=== PATIENT | female | born 1975 | race Caucasian/White ===

== ENCOUNTER 2019-01-11 16:14 | Emergency (ER) | payer MEDICAID ==
[~2019-01-11] VITALS: Ht 165.1 cm; Wt 100.0 kg
[~2019-01-11 16:14] MED LIST: NO HOME MEDS; ULTRAM50 MG OR
[2019-01-11 16:48] LABS: GFR > 60 ML/MIN (>=60 (CALC)); GFR FOR AFR.AMER. > 60 ML/MIN (>=60 (CALC))
[2019-01-11 16:51] LABS: HEMATOCRIT 44.1 % (37.0-47.0); HEMOGLOBIN 15.4 g/dl (12.0-16.0); IMMATURE GRANULOCYTES 0.8 % (0.0-5.0); MEAN CORPUSCULAR HGB 29.7 pG CALC (26.0-32.0); MEAN CORPUSCULAR HGB CONC 34.9 g/L CALC (32.0-36.0); NEUT# 15.68 thou/uL (2.00-7.15); RED BLOOD COUNT 5.19 mill/uL (4.20-5.60); RED CELL DISTRI WIDTH 12.4 % (11.5-15.5)
[2019-01-11 17:04] LABS: PROTHROMBIN TIME 10.2 SECONDS (9.0-12.5)
[2019-01-11 17:25] LABS: ALBUMIN 4.1 g/dL (3.2-5.0); ALKALINE PHOSPHATASE 108 u/l (38-126); ANION GAP 16 (6-22 (CALC)); BILIRUBIN, TOTAL 0.9 mg/dL (0.0-1.4); BUN 15 mg/dL (7-17); BUN/CREATININE RATIO 31 (12-20 (CALC)); CARBON DIOXIDE 24 mmol/l (22-30); CHLORIDE 96 mmol/l (95-108); CREATININE 0.5 mg/dL (0.5-1.0); GFR > 60 ML/MIN (>=60 (CALC)); GFR FOR AFR.AMER. > 60 ML/MIN (>=60 (CALC)); SGOT/AST 29 u/l (14-36); SODIUM 133 mmol/l (137-146); TOTAL PROTEIN 7.7 g/dL (6.3-8.2)
[2019-01-11 17:28] LABS: POTASSIUM 3.2 mmol/l (3.5-5.1)
[2019-01-11 17:35] VITALS: BP 155/88
[2019-01-11 17:37] LABS: MYOGLOBIN 37 ng/mL (0 - 62)
== END 2019-01-11 17:35 | disposition short-term general hospital (02) ==
LOC: ED 16:14
PROVIDERS: Family Medicine
DX: I63.9 Cerebral infarction, unspecified (principal); R41.82 Altered mental status, unspecified; R47.81 Slurred speech; R47.01 Aphasia; R42 Dizziness and giddiness; R20.0 Anesthesia of skin; F17.200 Nicotine dependence, unspecified, uncomplicated; R94.31 Abnormal electrocardiogram [ECG] [EKG]; R29.719 NIHSS score 19
CPT/HCPCS: J0153; J2997

== ENCOUNTER 2020-05-09 12:04 | Observation (INO) | payer MEDICAID ==
[~2020-05-09] VITALS: Ht 165.1 cm; Wt 83.6 kg
--- NOTE | 2020-05-09 12:10 | NUR ---
PT AMB TO ROOM WITH STEADY GAIT FOR TRIAGE;
[2020-05-09 13:03] LABS: HEMATOCRIT 38.2 % (37.0-47.0); IMMATURE GRANULOCYTES 0.8 % (0.0-5.0); MEAN CELL VOLUME 84.5 fL CALC (80.0-100.0); MEAN CORPUSCULAR HGB 28.1 pG CALC (26.0-32.0); MEAN CORPUSCULAR HGB CONC 33.2 g/dL CAL (32.0-36.0); NEUT# 2.12 thou/uL (2.00-7.15); RED BLOOD COUNT 4.52 mill/uL (4.20-5.60); RED CELL DISTRI WIDTH 13.2 % (11.5-15.5)
--- NOTE | 2020-05-09 13:10 | NUR ---
DR DONNELLY AT BEDSIDE FOR ASSESSMENT
[2020-05-09 13:18] LABS: HEMOGLOBIN 12.7 g/dl (12.0-16.0)
[2020-05-09 13:21] LABS: ALBUMIN 4.6 g/dL (3.2-5.0); ALKALINE PHOSPHATASE 77 u/l (38-126); BUN 13 mg/dL (7-17); BUN/CREATININE RATIO 26 (12-20 (CALC)); C-REACTIVE PROTEIN 0.8 mg/dL (0-0.9); CARBON DIOXIDE 22 mmol/l (22-30); CHLORIDE 102 mmol/l (95-108); CREATININE 0.5 mg/dL (0.5-1.0); GFR > 60 ML/MIN (>=60 (CALC)); GFR FOR AFR.AMER. > 60 ML/MIN (>=60 (CALC)); SGOT/AST 38 u/l (14-36); SODIUM 134 mmol/l (137-146); TOTAL PROTEIN 7.9 g/dL (6.3-8.2)
[2020-05-09 13:23] LABS: ANION GAP 14 (6-22 (CALC)); BILIRUBIN, TOTAL 0.3 mg/dL (0.0-1.4); POTASSIUM 4.2 mmol/l (3.5-5.1)
--- NOTE | 2020-05-09 14:10 | NUR ---
PT RESTING ON STRETCHER; STATES PAIN HAS REDUCED TO 4 OUT OF 10; PT AND FAMILY ADVISED OF CONTINUED WAIT TIME; WILL CONTINUE TO MONITOR
[2020-05-09] MEDS ORDERED: ZESTRIL5 M1 PO (14:30)
[2020-05-09] MEDS ORDERED: METFORMIN HCL1000 MG PO (14:31)
[2020-05-09] MEDS ORDERED: EZALLOR SPRINKL20 MG PO (14:32)
[2020-05-09] MEDS ORDERED: ASPIRIN 81 LOW81 MG PO (14:33)
--- NOTE | 2020-05-09 15:10 | NUR ---
DR DONNELLY AT BEDSIDE TO DISCUSS POC
--- NOTE | 2020-05-09 16:10 | NUR ---
PT SITTING UP ON STRETCHER; NO S/S OF DISTRESS NOTED; VSS; PT AND FAMILY ADVISED OF CONTINUED WAIT TIME; CALL LIGHT WITHIN REACH; WILL CONTINUE TO MONITOR
--- NOTE | 2020-05-09 17:10 | NUR ---
MEAL TRAY GIVEN; PT AND FAMILY ADVISED OF CONTINUED WAIT TIME; VSS; WILL CONTINUE TO MONITOR
[2020-05-09 18:30] VITALS: BP 122/73
--- NOTE | 2020-05-09 18:35 | NUR ---
PT ARRIVED TO MED/SURG ROOM 281 IN STABLE CONDITION VIA WHEELCHAIR ACCOMPANIED BY MARIA ESTHER EAGLE;PT AMBULATED TO BEDSIDE WITH A STEADY GAIT;A&O X3,ORIENTED TO ROOM AND CALL LIGHT SYSTEM;VS OBTAINED BY АЛЕКСАНДР ASHLEY;PT DENIES ANY CURRENT PAIN OR NEEDS;RESPIRATIONS EVEN AND UNLABORED ON RA;TELE MONITORING IN PLACE;PT ENCOURAGED TO CALL FOR ASSISTANCE IF NEEDED;FALL PRECAUTIONS IN PLACE WITH CALL LIGHT IN REACH;WILL CONTINUE TO MONTIOR
--- NOTE | 2020-05-09 18:35 | NUR ---
Admission Note Report Given to: TENISHA LOUIS Transported by: X Wheelchair Stretcher Transported with: X Nurse Transporter X Patent IV O2 X Manager Social Responsibility Location: ICU X MS2
--- NOTE | 2020-05-09 18:48 | NUR ---
to go to room 281 per ms
--- NOTE | 2020-05-09 20:50 | NUR ---
UPON ENTERING ROOM PT FOUND TO BE RESTING IN BED. APPEARS COMFORTABLE AND IN NO APPARENT DISTRESS. RESPIRATIONS ARE REGULAR AND UNLABORED. PHYSICAL ASSESMENT COMPLETE AT THIS TIME. SCHEDULED MEDS ADMINISTERED, SEE E-MAR. PLAN OF CARE REVIEWED, PT DENIES QUESTIONS, VERBALIZES UNDERSTANDING. PT REPORTS ROOM FEELS TO WARM, UNABLE TO ADJUST THERMOSTAT TO COOLER TEMP THAN CURRENT SETTING. TABLE FAN PROVIDED TO PT'S COMFORT AND SATISFACTION, DENIES FURTHER NEEDS AT THIS TIME. ITEMS WITHIN REACH, BED LOCKED IN LOW POSITION W/ BEDRAILS UP X2. CALL JENKINS WITHIN REACH, AGREES TO CALL PRN.
--- NOTE | 2020-05-09 23:55 | NUR ---
MIDNIGHT SERUM TROPONIN LEVEL DRAWN AND SENT TO LAB.
--- NOTE | 2020-05-10 01:00 | NUR ---
TROPONIN LEVEL ASSESSED, RESULTS ARE NEGATIVE. NO FURTHER INTERVENTION AT THIS TIME.
--- NOTE | 2020-05-10 01:00 | NUR ---
PT APPEARS TO BE SLEEPING COMFORTABLY, NO APPARENT DISTRESS, RESPIRATIONS REGULAR AND UNLABORED. CALL JENKINS REMAINS WITHIN REACH.
[2020-05-10 03:44] VITALS: BP 111/57
--- NOTE | 2020-05-10 05:41 | NUR ---
PHYSICAL ASSESMENT UNCHANGED FROM BEGINING OF SHIFT BASELINE. PT AFEBRILE, HEMODYNAMICS STABLE. DENIES NEEDS AT THIS TIME. ITEMS REMAIN WITHIN REACH. BED REMAINS LOCKED IN LOW POSITION W/ BEDRAILS UPX2. CALL JENKINS REMAINS WITHIN REACH, AGREES TO CALL PRN.
--- NOTE | 2020-05-10 05:50 | NUR ---
AM LABS DRAWN.
[2020-05-10 06:53] LABS: CHOLESTEROL HDL RATIO 3.4 (<4.4 (CALC)); MAGNESIUM 2.1 mg/dL (1.6-2.3)
[2020-05-10 08:00] VITALS: BP 125/68
--- NOTE | 2020-05-10 10:56 | NUR ---
PT AWAKE, ALERT, ORIENTED X 3, AMBULATORY IN ROOM. PT WITH CLEAR LUNGS, RA. NO CMOPLAINT OF CHEST PAIN OR SOB. PT WAITS FOR DOCTOR IN ANTICIPATION OF DISCHARGE THIS MORNING.
[2020-05-10 11:03] VITALS: BP 125/77
[2020-05-10] MEDS ORDERED: AMOX/K CLAV875 M1 PO ×2 (13:31)
--- NOTE | 2020-05-10 14:41 | NUR ---
PT SEEN BY DR ARMSTRONG THIS AFTERNOON, HAS BEEN DISCHARGED TO HOME. PT VERBALIZED UNDERSTANDING OF DC INSTRUCTIONS, WAS TAKEN TO LOBBY IN WHEELCHAIR. [facility]
--- NOTE | 2020-05-11 09:34 | NUR ---
CALLED INFORMED PATIENT OF POSITIVE COVID RESULTS. GAVE INSTRUCTIONS FOR QUARANTINE AND SIGNS OF DISTRESS. INSTRUCTED PATIENT THE HEALTH DEPT WOULD BE CALLING. PATIENT VERBALIZED UNDERSTANDING OF INSTRUCTIONS
--- NOTE | 2020-05-13 09:40 | NUR ---
Notified patient of positive Covid results. Patient denies SOB or fever. Advised patient to quarantine until the [facility] contacts her with further instructions. Advised patient to return to the ED with any difficulty breathing or other urgent needs. Patient verbalized understanding. Patient states [facility] has already contacted her.
== END 2020-05-10 14:24 | disposition home or self-care (01) ==
LOC: ED 12:04 → ED-I 15:47 → ED 16:02 → ED-I 16:03 → MS2 16:03
PROVIDERS: Family Medicine; ADMIT Internal Medicine; ATTEND Internal Medicine
DX: U07.1 COVID-19 (principal); J32.9 Chronic sinusitis, unspecified; I10 Essential (primary) hypertension; E11.9 Type 2 diabetes mellitus without complications; I25.2 Old myocardial infarction; E78.5 Hyperlipidemia, unspecified; F17.200 Nicotine dependence, unspecified, uncomplicated; Z79.84 Long term (current) use of oral hypoglycemic drugs; Z86.73 Personal history of transient ischemic attack (TIA), and cerebral infarction without residual deficits
CPT/HCPCS: G0378

== ENCOUNTER 2020-05-23 08:15 | Emergency (ER) | payer MEDICAID ==
[~2020-05-23] VITALS: Ht 165.1 cm; Wt 81.0 kg
[~2020-05-23 08:15] MED LIST changes: +AMOX/K CLAV875 M1 PO; +ASPIRIN 81 LOW81 MG PO; +EZALLOR SPRINKL20 MG PO; +METFORMIN HCL1000 MG PO; +ZESTRIL5 M1 PO
[2020-05-23 09:11] VITALS: BP 123/77
[2020-05-23] MEDS ORDERED: INVOKANA100 MG PO (09:21)
== END 2020-05-23 09:20 | disposition home or self-care (01) ==
LOC: ED 08:15
DX: U07.1 COVID-19 (principal); E11.9 Type 2 diabetes mellitus without complications; I10 Essential (primary) hypertension; I25.2 Old myocardial infarction; Z86.73 Personal history of transient ischemic attack (TIA), and cerebral infarction without residual deficits; Z79.84 Long term (current) use of oral hypoglycemic drugs